=== PATIENT | male | born 1990 | race Caucasian/White ===

== ENCOUNTER 2019-12-04 14:56 | Emergency (ER) | payer SELFPAY ==
[~2019-12-04] VITALS: Ht 170.2 cm; Wt 81.8 kg
[2019-12-04] MEDS ORDERED: ACETAMINOPHEN 500 MG TABLET PO ONE (16:45)
[2019-12-04] MEDS ORDERED: KETOROLAC TROMETHAMINE 30 MG/ML VIAL IM ONE (16:45)
[2019-12-04 17:21] LABS: INFLUENZA TYPE A NEGATIVE FOR TYPE A (NEGATIVE); INFLUENZA TYPE B NEGATIVE FOR TYPE B (NEGATIVE)
[2019-12-04 17:28] VITALS: BP 137/85
== END 2019-12-04 18:14 | disposition home or self-care (01) ==
LOC: EMS 15:00
DX: R51 Headache (principal); R42 Dizziness and giddiness
CPT/HCPCS: 87804; 96372; 99283; J1885